=== PATIENT | male | born 1945 | race Caucasian/White ===

== ENCOUNTER 2018-04-13 12:32 | Outpatient (RCR) | payer OTHER, SELFPAY ==
[2018-04-13] MEDS: Normal Saline Flush 10 ML SYR IVP (09:30)
[2018-04-13] MEDS: Heparin 500 UNITS/5 ML SYRINGE IV (09:38)
[2018-04-13 09:45] LABS: Abs Immature Grans 0.06 k/cumm (0.0-0.09); Absolute Basophil Count 0.02 k/cumm (0.0-0.2); Absolute Eosinophil Count 0.22 k/cumm (0.0-0.7); Absolute Monocyte Count 0.71 k/cumm (0.11-0.7); Absolute Neutrophil Count 6.23 k/cumm (1.2-6.7); Basophils % 0.3; Eosinophils % 2.9; HCT 34.8 % (40.0-50.0); HGB 10.6 g/dL (13.5-17.5); Immature Grans % 0.8; Lymphocytes % 5.2; Mean Corp. HGB Concentration 30.5 g/dL (32.0-36.0); Mean Corpuscular Hemoglobin 28.8 pg (27.0-33.0); Mean Corpuscular Volume 94.6 fL (80-95); Mean Platelet Volume 10.3 fL (8.0-11.0); Monocytes % 9.3; Neutrophils % 81.5; Platelet Count 141 x1000/uL (130-400); RBC 3.68 m/cumm (4.50-6.00); RBC Distribution Width 17.4 % (11.8-14.1); White Blood Cell Count 7.64 k/cumm (4.4-10.8)
[2018-04-13 10:03] LABS: ALT 43 U/L (12-78); AST 30 U/L (15-37); Albumin 2.8 g/dL (3.4-5.0); Alkaline Phosphatase 91 U/L (46-116); Anion Gap 7.6 mmol/L (3-11); BUN 20 mg/dL (7-18); Bilirubin, Total 0.7 mg/dL (0.2-1.0); CO2 32.4 mmol/L (21.0-32.0); CREATININE 1.59 mg/dL (0.70-1.30); Chloride 96 mmol/L (98-107); Estimated GFR 43.01 (mL/min/1.73m2); Glucose 114 mg/dL (70-100); Potassium 4.2 mmol/L (3.5-5.1); Sodium 136 mmol/L (136-145); Total Protein 7.2 g/dL (6.4-8.2)
[2018-04-27] MEDS: Heparin 500 UNITS/5 ML SYRINGE IV (12:30)
[2018-04-27] MEDS: Normal Saline Flush 10 ML SYR IVP (12:30)
[2018-04-27 12:44] LABS: Abs Immature Grans 0.04 k/cumm (0.0-0.09); Absolute Basophil Count 0.02 k/cumm (0.0-0.2); Absolute Eosinophil Count 0.16 k/cumm (0.0-0.7); Absolute Lymphocyte Count 0.46 k/cumm (1.2-3.4); Absolute Monocyte Count 0.59 k/cumm (0.11-0.7); Absolute Neutrophil Count 5.29 k/cumm (1.2-6.7); Basophils % 0.3; Eosinophils % 2.4; HCT 36.5 % (40.0-50.0); HGB 11.2 g/dL (13.5-17.5); Immature Grans % 0.6; Mean Corp. HGB Concentration 30.7 g/dL (32.0-36.0); Mean Corpuscular Volume 94.6 fL (80-95); Mean Platelet Volume 10.5 fL (8.0-11.0); Neutrophils % 80.7; Platelet Count 144 x1000/uL (130-400); RBC 3.86 m/cumm (4.50-6.00); RBC Distribution Width 17.9 % (11.8-14.1); White Blood Cell Count 6.56 k/cumm (4.4-10.8)
[2018-04-27 12:55] LABS: ALT 23 U/L (12-78); AST 17 U/L (15-37); Albumin 2.9 g/dL (3.4-5.0); Alkaline Phosphatase 91 U/L (46-116); Anion Gap 4.9 mmol/L (3-11); BUN 20 mg/dL (7-18); Bilirubin, Total 0.6 mg/dL (0.2-1.0); CO2 31.1 mmol/L (21.0-32.0); CREATININE 1.26 mg/dL (0.70-1.30); Calcium 9.1 mg/dL (8.5-10.1); Chloride 100 mmol/L (98-107); Estimated GFR 56.26 (mL/min/1.73m2); Glucose 95 mg/dL (70-100); Potassium 4.4 mmol/L (3.5-5.1); Sodium 136 mmol/L (136-145); Total Protein 7.2 g/dL (6.4-8.2)
== END 2018-05-05 ==
LOC: INF 04-27 12:32
PROVIDERS: Visit Provider Internal Medicine Medical Oncology
DX: C34.92 Malignant neoplasm of unspecified part of left bronchus or lung (principal); Z45.2 Encounter for adjustment and management of vascular access device
CPT/HCPCS: 36591; 80053; 85025

== ENCOUNTER 2018-05-29 01:00 | Outpatient (RCR) | payer OTHER, SELFPAY ==
[2018-05-29] MEDS: Heparin 500 UNITS/5 ML SYRINGE (14:15)
[2018-05-29] MEDS: Normal Saline Flush 10 ML SYR IVP (14:15)
[2018-05-29 14:36] LABS: Abs Immature Grans 0.02 k/cumm (0.0-0.09); Absolute Basophil Count 0.02 k/cumm (0.0-0.2); Absolute Eosinophil Count 0.13 k/cumm (0.0-0.7); Absolute Lymphocyte Count 0.29 k/cumm (1.2-3.4); Absolute Neutrophil Count 4.83 k/cumm (1.2-6.7); Basophils % 0.3; Eosinophils % 2.2; HCT 36.7 % (40.0-50.0); HGB 11.6 g/dL (13.5-17.5); Immature Grans % 0.3; Mean Corp. HGB Concentration 31.6 g/dL (32.0-36.0); Mean Corpuscular Hemoglobin 29.8 pg (27.0-33.0); Mean Corpuscular Volume 94.3 fL (80-95); Mean Platelet Volume 9.9 fL (8.0-11.0); Monocytes % 8.6; Neutrophils % 83.6; Platelet Count 134 x1000/uL (130-400); RBC 3.89 m/cumm (4.50-6.00); RBC Distribution Width 16.8 % (11.8-14.1); White Blood Cell Count 5.79 k/cumm (4.4-10.8)
[2018-05-29 14:49] LABS: ALT 16 U/L (12-78); AST 17 U/L (15-37); Alkaline Phosphatase 93 U/L (46-116); Anion Gap 6.1 mmol/L (3-11); BUN 24 mg/dL (7-18); Bilirubin, Total 0.4 mg/dL (0.2-1.0); CO2 30.9 mmol/L (21.0-32.0); CREATININE 1.42 mg/dL (0.70-1.30); Calcium 8.9 mg/dL (8.5-10.1); Chloride 101 mmol/L (98-107); Estimated GFR 49.01 (mL/min/1.73m2); Glucose 138 mg/dL (70-100); Potassium 4.6 mmol/L (3.5-5.1); Sodium 138 mmol/L (136-145); Total Protein 6.9 g/dL (6.4-8.2)
== END 2018-06-04 23:59 | disposition home or self-care (01) ==
LOC: INF 01:00
PROVIDERS: Visit Provider Internal Medicine Medical Oncology
DX: C34.92 Malignant neoplasm of unspecified part of left bronchus or lung (principal); Z45.2 Encounter for adjustment and management of vascular access device
CPT/HCPCS: 36591; 80053; 85025